=== PATIENT | male | born 1980 | race Caucasian/White ===

== ENCOUNTER 2020-07-01 06:22 | Observation (INO) ==
--- NOTE | 2020-06-04 13:49 | PAT Medication Instructions ---
Medication Instructions Date of Service June 04, 2020 Home Medications cholecalciferol (vitamin D3) [Vitamin D3] 125 mcg PO QAM cyanocobalamin (vitamin B-12) [Cyanacobalamin] 1,000 mcg IM MONTHLY omeprazole 40 mg PO DAILY PRN pediatric multivitamin no.76 [Flintstones Complete] 1 tab PO BID Continue as directed cyanocobalamin (vitamin B-12) [Cyanacobalamin] 1,000 mcg IM MONTHLY DO NOT take the morning of surgery pediatric multivitamin no.76 [Flintstones Complete] 1 tab PO BID cholecalciferol (vitamin D3) [Vitamin D3] 125 mcg PO QAM Take morning of surgery With a small sip of water, OTHERWISE NOTHING TO EAT OR DRINK AFTER MIDNIGHT: omeprazole 40 mg PO DAILY PRN (if needed) Take evening before surgery pediatric multivitamin no.76 [Flintstones Complete] 1 tab PO BID Other Notes If you have any questions please call us at [phone] or [phone] or [phone] or [phone]
--- NOTE | 2020-06-08 09:51 | Anesthesiology Consultation ---
Date of Service June 08, 2020 Assessment & Plan (1) Encounter for pre-operative examination: Chart Review Chart Review: Acceptable Risk for Surgery (pending preop Covid testing ) and Patient seen in Pre Admission Testing Per PAT appt on 06/08/20, pt resides in [facility]. 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 Wears proper PPE while on site. No known Covid positive contacts or Covid related symptoms. Scheduled for Covid testing 06/25/20. Will be off work from time of Covid test until surgery. Seen by PCP 05/12/20= "Chronic medical conditions are stable - continue current therapy...He is medically optimized for this low risk, non-emergent surgery. " F/u in one year Teaching & Discussion Pre-Anesthesia Teaching/Discussion Notes: Instructed NPO after midnight before surgery,except medications with 15 cc of water. Medication instructions pro vided according to the PAT guidelines. History Surgery Operation Date: 07/01/20 09:20 Proposed Procedures p Right Total Knee Arthroplasty - Joselito Osborne MD Height/Weight Height: 6 ft 4 in Weight: 140.2 kg Allergies Allergy/AdvReac Type Severity Reaction Status Date / Time vancomycin Allergy Severe Otilia Verified 06/02/20 08:27 Syndrome Medications Home Medications Medication Instructions Recorded Confirmed Last Taken cholecalciferol (vitamin D3) 125 mcg PO QAM 06/02/20 06/02/20 Unknown [Vitamin D3] cyanocobalamin (vitamin B-12) 1,000 mcg IM MONTHLY 06/02/20 06/02/20 Unknown [Cyanacobalamin] omeprazole 40 mg PO DAILY PRN 06/02/20 06/02/20 Unknown pediatric multivitamin no.76 1 tab PO BID 06/02/20 06/02/20 Unknown [Flintstones Complete] Past Medical History Medical History GERD (gastroesophageal reflux disease) Well controlled and stable History of bleeding ulcers No current issues Exercise / Class Metabolic Activity II 4-5 Yardwork/Stairs/Walk up hill (one flight of stairs - no chest pain or SOB) Past Family History Family History Other No family history of adverse response to anesthesia Past Surgical History Surgical History History of arthroscopy of right shoulder right bicep tendon repair History of esophagogastroduodenoscopy (EGD) multiple History of gastric bypass History of gastric surgery October 2019 Gastric bypass revision History of tonsillectomy S/P ACL repair partial Right Knee S/P debridement Right knee S/P laminectomy lumbar S/P right knee arthroscopy reconstruction 1995 S/P right knee surgery multiple Past Anesthesia History No Hx of Anesthesia Complications (with exception to post op headache ; did have one episode of left arm numbness with last surgery- feels secondary to positioning during procedure ) and No Family Hx of Anesthesia Complications History of PONV No Hx of PONV and No Hx of Motion Sickness Social History Smoking Status: Never smoker Do You Dip or Chew Tobacco: No Hx Alcohol Use: Yes Alcohol type: beer alcohol intake frequency: a few times a week Hx Substance Use: No substance use type: does not use Review of Systems Patient denies chest pain, shortness of breath, dyspnea on exertion, cough, wheezing, palpitations. No hx of seizures, stroke, [place], apnea/snoring (had negative sleep study in the past). No hx of blood clots or blood transfusions Physical Exam Vital Signs VITALS BP 131/84 P 68 TEMP 97.7 SP02 99% RESP 16 Constitutional no acute distress ENMT Mouth: no TMJ clicking Thyromental Distance: > or= 3.5 Finger Breadths (3.5) Mallampati Class: I Cap to molar Neck + thick neck (mild ); neck extension not limited Respiratory normal respiratory effort; no respiratory distress Auscultation: lungs clear to auscultation bilaterally; no wheezes Cardiovascular Rate/Rhythm: regular rate and regular rhythm Heart Sounds: no murmur Vessels: no carotid bruit Musculoskeletal Spine: no pain with cervical ROM Neurologic moves all extremities Psychiatric Orientation: alert Testing Laboratory Results 06/08/20 10:11 06/08/20 10:11 PT 11.3 Seconds (9.0-12.0) 06/08/20 10:11 INR 1.1 (0.9-1.1) 06/08/20 10:11 APTT 28.2 Seconds (21.0-31.0) 06/08/20 10:11 Urine Color Yellow 06/08/20 10:11 Urine Appearance Clear (Clear) 06/08/20 10:11 Urine pH 6.5 (4.5-7.5) 06/08/20 10:11 Ur Specific [place] 1.017 (1.000-1.030) 06/08/20 10:11 Urine Protein Negative (Negative) 06/08/20 10:11 Urine Glucose (UA) Negative (Negative) 06/08/20 10:11 Urine Ketones Negative (Negative) 06/08/20 10:11 Urine Nitrite Negative (Negative) 06/08/20 10:11 Ur Leukocyte Esterase Negative (Negative) 06/08/20 10:11 Blood Type O Negative 06/08/20 10:11 Antibody Screen NEGATIVE 06/08/20 10:11 Electrocardiogram Date: 06/08/20 Findings: + NSR @ (65) Normal EKG. Chest X-Ray Date: 06/08/20 Findings: + NAD
--- NOTE | 2020-06-08 10:37 | XRay Report ---
XR chest Pre-admission PA/Lat HISTORY: 39 years-old Male pat preoperative exam. No acute chest complaints COMPARISON: None TECHNIQUE: PA and lateral views of the chest FINDINGS: Cardiomediastinal and hilar silhouettes are within normal limits. There is no pneumothorax, pleural e ffusion, airspace consolidation or overt pulmonary edema. The bones of the chest appear grossly intac t. IMPRESSION: No acute process. ACT 112: Negative or not required by law. The above report was generated using voice recognition software. It may contain grammatical, syntax o r spelling errors. Electronically signed by: Tariq Gibbs M.D. 06/08/2020 10:35 AM
[2020-06-08 10:40] LABS: Appearance Urine Clear (Clear); Bilirubin Urine Negative (Negative); Blood Urine Negative (Negative); Color Urine Yellow; Glucose Urine UA Negative (Negative); Ketones Urine Negative (Negative); Leukocyte Esterase Urine Negative (Negative); Nitrite Urine Negative (Negative); Protein Urine Negative (Negative); Specific Gravity Urine 1.017 (1.000-1.030); Urobilinogen Urine Negative (Negative); pH Urine 6.5 (4.5-7.5)
[2020-06-08 10:56] LABS: INR 1.1 (0.9-1.1); Partial Thromboplastin Time 28.2 Seconds (21.0-31.0); Prothrombin Time 11.3 Seconds (9.0-12.0)
[2020-06-08 11:49] LABS: Basophils # (auto) 0.01 K/uL (0-0.2); Basophils % (auto) 0.2 %; Eosinophils # (auto) 0.04 K/uL (0-0.5); Eosinophils % (auto) 0.8 %; Hematocrit (blood only) 40.7 % (42-52); Immature Granulocytes # (auto) 0.01 K/uL (0.00-0.02); Immature Granulocytes % (auto) 0.2 %; Lymphocytes # (auto) 1.57 K/uL (1.2-3.4); Lymphocytes % (auto) 32.8 %; Mean Corpuscular Hemoglobin 28.2 pg (25-34); Mean Corpuscular Hgb Conc 34.4 g/dL (32-36); Mean Corpuscular Volume 81.9 fL (80-100); Mean Platelet Volume 9.6 fL (7.4-10.4); Monocytes # (auto) 0.49 K/uL (0.11-0.59); Monocytes % (auto) 10.2 %; Neutrophils # (auto) 2.67 K/uL (1.4-6.5); Neutrophils % (auto) 55.8 %; Platelet Count 212 K/uL (130-400); RDW Coefficient of Variation 13.6 % (11.5-14.5); RDW Standard Deviation 40.3 fL (36.4-46.3); Red Blood Count 4.97 M/uL (4.7-6.1); White Blood Count 4.79 K/uL (4.8-10.8)
[2020-06-08 12:18] LABS: BUN Creatinine Ratio 17.9 (10-20); Calcium 9.5 mg/dl (8.5-10.1); Creatinine Clr Calc Pharmacy 200.9 ml/min; Est GFR (African American) 134.4; Est GFR (Non-African American) 115.9; Potassium 4.3 mmol/L (3.5-5.1)
--- NOTE | 2020-06-08 12:59 | Electrocardiogram Report ---
Test Reason : Blood Pressure : / mmHG Vent. Rate : 065 BPM Atrial Rate : 065 BPM P-R Int : 180 ms QRS Dur : 106 ms QT Int : 388 ms P-R-T Axes : 039 085 027 degrees QTc Int : 403 ms Normal sinus rhythm Normal ECG No previous ECGs available Confirmed by Jonnie Bray ([id number]) on 06/08/2020 12:59:34 PM Referred By: Joselito Osborne Confirmed By:Jonnie Bray
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
[~2020-07-01 06:22] MED LIST: LR 500ML BOLUS, THEN 15ML/HR IV SCH; LR 60ML/HR IV SCH; ROPIVACAINE 0.5% HCL/PF 150 MG, BUPIVACAINE 0.5% MPF 30 ML, EPINEPHrine 0.15 MG, Ketoro... INFIL SCH; TRANEXAMIC ACID 1,000 MG **IV Pre-op IV SCH; levoFLOXacin 750 MG TAB PO SCH
--- NOTE | 2020-07-01 06:46 | History & Physical Bridge Note ---
Date of Service July 01, 2020 History & Physical Bridge Note I have examined the patient, reviewed the History & Physical and in the interval since the performance of the History & Physical I have noted the following changes of clinical significance: consent verifired/site verified/covid screen negative.no changes noted
[2020-07-01] MEDS ORDERED: fentaNYL citrate 100 MCG/2 ML VIAL ONE (07:09)
[2020-07-01] MEDS ORDERED: MIDAZOLAM HCL 1 MG/ML 2ML VIAL ONE ×2 (07:09→08:55)
[2020-07-01] MEDS ORDERED: PROPOFOL IV EMULSION 10 MG/ML 20 ML VIAL IV ONE ×6 (07:09→09:34)
[2020-07-01] MEDS ORDERED: BUPIVACAINE 0.5 % 5 MG/1 ML PF 10ML VIAL ONE (07:32)
[2020-07-01] MEDS ORDERED: ROPIVACAINE 0.5% 5 MG/ML 30 ML VIAL ONE (07:33)
[2020-07-01] MEDS ORDERED: HYDROmorphone INJ 2 MG/ML SYR/VIAL IV PRN (08:04)
[2020-07-01] MEDS ORDERED: ONDANSETRON INJ 2 MG/ML 2 ML VIAL IV PRN ×2 (08:04→11:53)
[2020-07-01] MEDS ORDERED: fentaNYL citrate 100 MCG/2 ML VIAL IV PRN (08:04)
[2020-07-01] MEDS ORDERED: ePHEDrine sulfate 50 MG/ML AMP IV PRN (08:04)
[2020-07-01] MEDS ORDERED: ATROPINE SULFATE 0.1 MG/ML 10ML SYR IV PRN (08:04)
[2020-07-01] MEDS ORDERED: ORTHO JOINT ANESTHETIC ONE (08:30)
[2020-07-01] MEDS ORDERED: KETAMINE 50 MG/5 ML SYRINGE ONE (08:56)
--- NOTE | 2020-07-01 10:49 | Post Operative Brief Note ---
Immediate Post Op Note v1 Date of Surgery July 01, 2020 Pre & Post Diagnosis Operation Date: 07/01/20 08:50 Pre-Op Diagnosis: Right Knee Degenerative Joint Disease Post-Op Diagnosis: Right Knee Degenerative Joint Disease I identified the patient and participated in the time-out.: Yes Procedure Operation Date: 07/01/20 08:50 Actual Procedures p Right Total Knee Arthroplasty(Right) - Joselito Osborne MD Surgeon Joselito Osborne MD Concrete Pipe Maker poli/simba Estimated Blood Loss 100 Findings Consistent with Post-Op Diagnosis
--- NOTE | 2020-07-01 11:03 | Operative Report ---
Post Operative Report Pre & Post Diagnosis Operation Date: 07/01/20 08:50 Pre-Op Diagnosis: Right Knee Degenerative Joint Disease Post-Op Diagnosis: Right Knee Degenerative Joint Disease I identified the patient and participated in the time-out.: Yes Procedure Operation Date: 07/01/20 08:50 Actual Procedures p Right Total Knee Arthroplasty(Right) - Joselito Osborne MD Surgeon TRUMAN Osborne MD Transportation Specialist poli/simba CHO Estimated Blood Loss 100 Findings Consistent with Post-Op Diagnosis Specimens see operative report Drains none Complications none Disposition Accompanied Patient To Recovery: Yes Disposition: Recovery Room Indications This 39-year-old white male presented to the office with complaints of intractable right knee pain. He had tried conservative care measures without improvement. He elected to proceed with surgical intervention after being educated about potential risks and outcomes. Preoperative imaging was obtained. Description of Procedure Patient was given a spinal anesthetic and then taken to the operating room where he was given sedation. He was prepped and draped in the usual sterile fashion. Please see Dr. Osborne's operative report for specifics of the procedure. I was present for the entire case from initial patient positioning through final wound closure. Assistance was provided in tissue retraction, hemostasis, trial implant placement, final implant placement, and final wound closure. Patient was taken to the recovery room in satisfactory condition. I attest to the content of the Intraoperative Record and any orders documented therein. Any exceptions are noted below.
--- NOTE | 2020-07-01 11:22 | XRay Report ---
XR knee RT 1 or 2V routine CLINICAL HISTORY: Postop study. COMPARISON: November 2019 DISCUSSION: There are postsurgical changes of a total right knee arthroplasty and patellar resurfacin g. The femoral tibial components appear well seated. Overlying skin elizabeth. There is gas present wit hin the soft tissues consistent with recent surgery. IMPRESSION: Postsurgical changes of a total right knee arthroplasty. ACT 112: Negative or not required by law. Electronically signed by: Avtar Cordon M.D. 07/01/2020 11:21 AM
--- NOTE | 2020-07-01 11:47 | Anesthesiology Progress Note ---
Date of Service July 01, 2020 Anesthesia Post Procedure Vital Signs Vital Signs: Temp Pulse Pulse Resp BP BP Pulse Ox 07/01/20 11:35 56 L 14 125/88 99 07/01/20 11:25 36.6 C 62 15 129/86 99 07/01/20 11:15 60 14 130/85 100 07/01/20 11:05 68 13 122/75 100 07/01/20 10:59 36.0 C L 65 14 134/85 100 07/01/20 07:25 61 16 133/90 99 07/01/20 06:47 36.8 C 56 L 16 165/89 H 97 Pain Intensity Right Knee: Pain Intensity: 5 Transfer of Care Handoff Completed per policy Notes Mental Status: alert / awake / arousable and participated in evaluation Patient Amnestic to Procedure: Yes Nausea / Vomiting: adequately controlled Pain: adequately controlled Airway Patency, RR, SpO2: stable & adequate BP & HR: stable & adequate Hydration State: stable & adequate Neuraxial Anesthesia: was administered and sensory block is resolving Anesthetic Complications: no major complications apparent
[2020-07-01] MEDS ORDERED: NALOXONE HCL 0.4 MG/1 ML VIAL/CARP IV PRN (11:53)
[2020-07-01] MEDS ORDERED: bisacodyL 10 MG SUPP PR PRN (11:53)
[2020-07-01] MEDS ORDERED: METOCLOPRAMIDE HCL INJ 5 MG/ML 2 ML VIAL IV PRN (11:53)
[2020-07-01] MEDS ORDERED: MAGNESIUM HYDROXIDE SUSP 30 ML UDC PO PRN (11:53)
[2020-07-01] MEDS ORDERED: ALUMINUM/MAGNESIUM SUSP 30 ML UDC PO PRN (11:53)
[2020-07-01] MEDS ORDERED: TAMSULOSIN HCL 0.4 MG CAP PO PRN (11:53)
[2020-07-01] MEDS ORDERED: diphenhydrAMINE 50 MG/ML VIAL IV PRN (11:53)
[2020-07-01] MEDS ORDERED: SODIUM CHLORIDE 0.9% 1000ML 1,000 ML IV SCH (11:53)
[2020-07-01] MEDS ORDERED: PANTOprazole 40 MG TAB PO PRN (12:05)
--- NOTE | 2020-07-01 12:20 | Operative Report (OR) ---
DATE OF OPERATION: 07/01/2020 SURGEON: Joselito Osborne MD. BURNER MACHINE OPERATOR: Gail. SECOND METALLOGRAPHIC TECHNICIAN: Dieudonne Gee PA-C. PREOPERATIVE DIAGNOSES: Severe osteoarthritis, 39-year-old male with valgus flexion deformity. POSTOPERATIVE DIAGNOSES: Severe osteoarthritis, 39-year-old male with valgus flexion deformity. OPERATION PERFORMED: Right total knee replacement with correction of valgus and flexion deformity. SUMMARY OF IMPLANTS: Size 6 right femur posterior cruciate substituting, size 6 mobile bearing tray, 41 patella, 6 x10 posterior cruciate substituting rotating platform, 2 bags of Palacos G cement. PATHOLOGY: Bone pathology pending. ESTIMATED BLOOD LOSS: 100 mL. PERIOPERATIVE SITUATION: Medically cleared male with intractable knee pain. He has failed all conservative management for years. He is young, but he has severe valgus flexion deformity. At this point in time, he wants to proceed with total knee replacement. He was well advised of the risks and benefits and complications, see consent, especially with the valgus deformity and the flexion deformity, peroneal nerve palsy. He states he understands this. DESCRIPTION OF PROCEDURE: The patient was appropriately identified, site verified, consent verified. Antibiotics confirmed as being given. The right lower extremity was prepped and draped in the usual routine fashion. Tourniquet inflated to 300 mmHg after exsanguination of limb with a rubber Esmarch bandage for a total of 76 minutes. Midline exposure was utilized. Parapatellar arthrotomy performed. Extensive synovectomy completed. Huge osteophytes were removed. The intercondylar notch was all overgrown. This was released with the osteotome. There was no ACL left. PCL was intact. The remaining cruciates was resected. Menisci were resected. The tibia was subluxated. The distal femur was then resected 14 mm, proximal tibia 4 mm, the extension gap was still tight, so 2 more millimeters off the tibia was taken and then it was close to being excellent; however, is a little tight laterally, so further release was performed laterally. Then, it was excellent. Femur was sized to a size 6. The appropriate cutting block was applied. The anterior and posterior condylar and chamfer cuts were then made. The flexion gap was good. Box cut was then made and the size 6 fit well. The tibia was then broached and reamed to a size 6, 10 mm spacer made the knee get close to 0 and full flexion and good mid range stability. The patella tracked well. The patella was resected leaving 18 mm, 41 patella was then seated with drill holes and it tracked well. The knee was then injected with Orthomix. We did not go posteriorly because we did not want to interfere with the peroneal nerve. The trial implants were then removed. The wound irrigated and then cemented into position, tibia, femur, patella in that order. At 14 minutes, the tourniquet was deflated. There was significant bleeding from the lateral femoral circumflex vessel at the joint line. This was coagulated. The rest of the bleeding was of no major issue. Roughly 100 mL of blood total once the tourniquet was deflated during the closure. The closure after the knee was irrigated and the permanent liner seated, the knee was reduced and then closed at 30-40 degrees of flexion with #2 Vicryl, 2-0 Vicryl and stainless steel clips. Dressing applied as well as a Stevenson Ruvalcaba cotton for extra compression. He will stay overnight. Discharge tomorrow. DVT prophylaxis per protocol. Bone pathology pending. EBL 100 mL. I attest to the content of the Intraoperative Record and any orders documented therein. Any exception s are noted below.
[2020-07-01] MEDS: ACETAMINOPHEN 500 MG TAB PO SCH ×2 (13:01→22:16)
[2020-07-01] MEDS: KETOROLAC 30 MG/ML VIAL IV SCH ×2 (13:01→18:25)
--- NOTE | 2020-07-01 13:26 | Discharge Summary (DS) ---
CHIEF COMPLAINT: Right knee pain. The patient is an unfortunate 39-year-old male with extensive degenerative disease of his knee with severe valgus and flexion deformity. Wants to proceed with surgical knee replacement and he understands the risks and consequences based on his age, particularly with the peroneal nerve. Today, his hospital course has been uneventful. Postop x-rays look excellent. PAST MEDICAL HISTORY AND PAST SURGICAL HISTORY: Remarkable for GERD, history of bleeding ulcers, history of shoulder surgeries, EGDs, ACL repair, debridement of his knee, this is all on the right. FAMILY HISTORY: Noncontributory. SOCIAL HISTORY: Reveals that he is . Does not smoke, does not chew. Social alcohol only. Feels safe at home. He is employed. He is an oilfield labor. ASSESSMENT: Status post right total knee replacement. The patient is doing well. Neurologic function is improving nicely. At this point in time, we will discharge to home if he does well overnight as to the right lower extremity.
[2020-07-01] MEDS: oxyCODONE HCL IR 5 MG TAB (IMMEDIATE RELEASE) PO PRN ×2 (13:57→19:09)
[2020-07-01] MEDS ORDERED: ORTHO WARFARIN NOMOGRAM SCH ×2 (14:00)
[2020-07-01] MEDS: HYDROmorphone INJ 0.5 MG/0.5 ML SYR IV PRN ×3 (15:11→20:39)
[2020-07-01] MEDS ORDERED: WARFARIN SOD 5 MG TAB PO ONE (16:00)
[2020-07-01] MEDS: FERROUS GLUCONATE 324 MG TAB PO SCH (16:18)
[2020-07-01] MEDS: ASCORBIC ACID 500 MG TAB PO SCH (16:19)
--- NOTE | 2020-07-01 16:43 | Progress Notes ---
DATE: 07/01/2020 Follow up of postop right total knee replacement for valgus flexion deformity. The patient is sitting up in bed, is comfortable. He ate and drank. Denies shortness of breath, fever, chills, nausea, vomiting or headache. Vital signs are stable. He is afebrile. Postop x-rays look excellent. Neurovascular check again in detail reveals intact pulses, intact sensation in the lower extremities. No sign of any peroneal nerve issue. The popliteal artery appears intact. No problems. ASSESSMENT: Doing well. Continue with postoperative care pathway. Discharge tomorrow.
[2020-07-01] MEDS ORDERED: TRANEXAMIC ACID / 0.7% NACL 1,000 MG/100 ML BAG IV SCH (17:08)
[2020-07-01] MEDS: ceFAZolin 2000MG 2,000 MG/15 ML SYR IV SCH (17:25)
[2020-07-01] MEDS: MULTIVITAMIN CHEWABLE TAB PO SCH (20:44)
[2020-07-01] MEDS: DOCUSATE SODIUM 100 MG CAP PO SCH (20:44)
[2020-07-01] MEDS ORDERED: SENNA 8.6 MG TAB PO SCH (21:00)
[2020-07-02] MEDS: HYDROmorphone INJ 0.5 MG/0.5 ML SYR IV PRN ×2 (00:06→04:28)
[2020-07-02] MEDS: ceFAZolin 2000MG 2,000 MG/15 ML SYR IV SCH (00:17)
[2020-07-02] MEDS: KETOROLAC 30 MG/ML VIAL IV SCH ×2 (00:22→06:08)
[2020-07-02] MEDS: ACETAMINOPHEN 500 MG TAB PO SCH (05:34)
[2020-07-02] MEDS: oxyCODONE HCL IR 5 MG TAB (IMMEDIATE RELEASE) PO PRN ×3 (05:34→12:01)
[2020-07-02 06:19] LABS: Hematocrit (blood only) 35.3 % (42-52); Hemoglobin 11.8 g/dL (14.0-18.0); Mean Corpuscular Hemoglobin 27.8 pg (25-34); Mean Corpuscular Hgb Conc 33.4 g/dL (32-36); Mean Corpuscular Volume 83.3 fL (80-100); Mean Platelet Volume 9.7 fL (7.4-10.4); Platelet Count 208 K/uL (130-400); RDW Coefficient of Variation 13.8 % (11.5-14.5); RDW Standard Deviation 41.9 fL (36.4-46.3); Red Blood Count 4.24 M/uL (4.7-6.1); White Blood Count 9.34 K/uL (4.8-10.8)
[2020-07-02 06:27] LABS: INR 1.1 (0.9-1.1); Prothrombin Time 11.5 Seconds (9.0-12.0)
[2020-07-02 06:57] LABS: BUN Creatinine Ratio 24.5 (10-20); Calcium 8.1 mg/dl (8.5-10.1); Creatinine Clr Calc Pharmacy 159.6 ml/min; Est GFR (African American) 115.1; Est GFR (Non-African American) 99.3; Potassium 3.9 mmol/L (3.5-5.1)
[2020-07-02] MEDS ORDERED: dexAMETHasone 10 MG in SYRINGE 0 ML IV SCH (08:00)
--- NOTE | 2020-07-02 08:19 | Progress Notes ---
DATE: 07/02/2020 SUBJECTIVE: Postop day #1 status post right total knee replacement. The patient is doing well, sitting up reading. Denies chest pain, shortness of breath, fever, chills, nausea, vomiting or headache. OBJECTIVE: VITAL SIGNS: Stable. He is afebrile. Wound dressing clean, dry and intact. LABORATORIES: Hematocrit is stable at 35.3. INR is 1.1. ASSESSMENT: Doing well. Discharge to home today. Leave present dressing in place until Monday, have him come to the office on Monday. Coumadin per nomogram, readjust on Monday pending new results.. MTDD
[2020-07-02] MEDS: MULTIVITAMIN CHEWABLE TAB PO SCH (09:39)
[2020-07-02] MEDS: ASCORBIC ACID 500 MG TAB PO SCH (09:40)
[2020-07-02] MEDS: FERROUS GLUCONATE 324 MG TAB PO SCH (09:40)
[2020-07-02] MEDS: DOCUSATE SODIUM 100 MG CAP PO SCH (09:40)
[2020-07-02] MEDS ORDERED: WARFARIN SOD 5 MG TAB PO ONE (11:00)
== END 2020-07-02 12:23 | disposition home health service (06) ==
LOC: ASU 06:22 → 3E 06:22